=== PATIENT | female | born 1965 | race Caucasian/White ===

== ENCOUNTER 2018-08-06 12:33 | Outpatient (CLI) | payer OTHER ==
--- NOTE | 2018-08-06 14:33 | BD ---
BONE DENSITOMETRY USING DEXA: Date: 08/06/18 HISTORY: Postmenopausal screening for osteoporosis. FINDINGS: Lumbar Spine: BMD (g/cm2) L1 0.889 T-Score: -0.9 Z-Score: -0.1 L2 0.909 T-Score: -1.1 Z-Score: 0.2 L3 0.927 T-Score: -1.4 Z-Score: -0.5 L4 0.946 T-Score: -1.0 Z-Score: 0.0 L1-L4 0.919 T-Score: -1.2 Z-Score: -0.2 Femoral Neck: 0.723 T-Score: -1.1 Z-Score: -0.2 Total Femur: 0.984 T-Score: -0.3 Z-Score: 0.9 The 10 year fracture risk for a major osteoporotic fracture is 5.8% and for a hip fracture is 0.4%. IMPRESSION: Osteopenia. POS: ANA
--- NOTE | 2018-08-06 14:38 | RAD ---
LUMBAR SPINE MULTIPLE VIEWS INCLUDING FLEXION AND EXTENSION: Date: 08/06/18 HISTORY: Low back pain. FINDINGS: There are mild degenerative changes in the lower lumbar spine. No fracture, subluxation, bony destruc tion, spondylosis, or spondylolisthesis seen. No change in alignment is noted on the flexion or exten kena images. IMPRESSION: Mild lumbar spondylosis. POS: ANA
== END 2018-08-06 12:34 | disposition home or self-care (01) ==
LOC: BICMAMMO 12:33
PROVIDERS: ATTEND Obstetrics & Gynecology
DX: Z12.31 Encounter for screening mammogram for malignant neoplasm of breast (principal); Z13.820 Encounter for screening for osteoporosis; M54.5 Low back pain; R92.1 Mammographic calcification found on diagnostic imaging of breast; M85.89 Other specified disorders of bone density and structure, multiple sites; M47.896 Other spondylosis, lumbar region
CPT/HCPCS: 72100; 77063; 77067; 77080

== ENCOUNTER 2019-05-18 19:14 | Inpatient (IN) | payer OTHER ==
[2019-05-18] MEDS ORDERED: Lorazepam 2 MG/ML VIAL ONE (19:28)
[2019-05-18] MEDS ORDERED: Ondansetron PF 4 MG/2 ML Vial ONE (19:28)
[2019-05-18 19:48] LABS: #Basophils 0.1 thou/uL (0.0-0.2); #Eosinphils 0.1 thou/uL (0.0-0.7); #Monocytes 0.8 thou/uL (0.11-0.59); #Neutrophils 2.7 thou/uL (1.40-6.50); %Basophils 1.8 % (0.0-1.0); %Eosinophils 1.1 % (0.0-10.0); %Lymphocytes 44.9 % (21.0-51.0); %Monocytes 11.9 % (0.0-10.0); %Neutrophils 40.2 % (42.0-75.0); Hemoglobin 13.5 g/dL (12.0-16.0); Mean Corpuscular HGB CONC 37.5 g/dL (32.0-36.0); Mean Corpuscular Hemoglobin 32.6 pg (27.0-31.0); Mean Corpuscular Volume 86.9 fL (78.0-98.0); Mean Platelet Volume 6.1 fL (7.4-10.4); Platelet Count 263 thou/uL (130-400); Platelet Morphology Comment Appears Adequate; RBC Distribution Width 10.4 % (11.5-14.5); Red Blood Cell (RBC) Count 4.14 mill/uL (4.20-5.40); White Blood Cell (WBC) Count 6.7 thou/uL (4.8-10.8)
[2019-05-18 19:49] LABS: ALT (SGPT) 17 U/L (8-55); AST (SGOT) 24 U/L (5-34); Albumin 4.7 g/dL (3.5-5.0); Alkaline Phosphatase 52 U/L (40-150); Anion Gap 24 mmol/L (10-20); BUN (Urea Nitrogen) 6 mg/dL (9.8-20.1); Bilirubin, Total 0.8 mg/dL (0.2-1.2); Calc. Creatinine Clearance 0 mL/min (70-130); Calcium 9.8 mg/dL (7.8-10.44); Carbon Dioxide 18 mmol/L (22-29); Chloride 86 mmol/L (98-107); Estimated GFR-MDRD 64; Globulin 2.8 g/dL (2.4-3.5); Glucose 153 mg/dL (70-105); Protein, Total 7.5 g/dL (6.0-8.3); Sodium 125 mmol/L (136-145)
[2019-05-18 19:56] LABS: Potassium 2.7 mmol/L (3.5-5.1)
[2019-05-18] MEDS ORDERED: Potassium Chloride 20 MEQ TAB ONE (20:00)
[2019-05-18] MEDS ORDERED: NS 0.9% w/ 20 MEQ KCL 1,000 ML ONE (20:00)
--- NOTE | 2019-05-18 20:18 | RAD ---
PORTABLE UPRIGHT CHEST ONE VIEW: 05/18/19 at 8:04 p.m. HISTORY: Chest pain, shortness of breath. FINDINGS: The heart size is normal. The lungs are expanded without focal areas of consolidation, pneumothoraces or pleural effusions. IMPRESSION: No acute process. POS: [facility]
[2019-05-18] MEDS ORDERED: NS 0.9% w/ 20 MEQ KCL 1,000 ML IV SCH (23:00)
[2019-05-18 23:21] VITALS: BMI 19.7
[2019-05-19] MEDS ORDERED: Lorazepam 2 MG/ML VIAL SLOW IVP PRN (01:06)
[2019-05-19] MEDS ORDERED: Ondansetron ODT 4 MG TAB PO PRN (01:06)
[2019-05-19] MEDS ORDERED: ALPRAZolam 0.5 MG TAB PO PRN (01:06)
[2019-05-19] MEDS ORDERED: Ondansetron PF 4 MG/2 ML Vial IVP PRN (01:06)
[2019-05-19] MEDS ORDERED: Acetaminophen 500 MG TAB PO PRN (01:06)
[2019-05-19] MEDS: Potassium Chloride 40 MEQ in Sodium Chloride 0.45% 1,000 ML IV SCH ×2 (01:36→11:59)
[2019-05-19 06:07] LABS: ALT (SGPT) 15 U/L (8-55); AST (SGOT) 24 U/L (5-34); Alkaline Phosphatase 43 U/L (40-150); Anion Gap 8 mmol/L (10-20); BUN (Urea Nitrogen) 5 mg/dL (9.8-20.1); Bilirubin, Total 0.5 mg/dL (0.2-1.2); Calc. Creatinine Clearance 69 mL/min (70-130); Carbon Dioxide 25 mmol/L (22-29); Chloride 105 mmol/L (98-107); Estimated GFR-MDRD 81; Globulin 2.1 g/dL (2.4-3.5); Glucose 99 mg/dL (70-105); Potassium 4.8 mmol/L (3.5-5.1); Protein, Total 6.1 g/dL (6.0-8.3); Sodium 133 mmol/L (136-145)
[2019-05-19 06:41] LABS: Hemoglobin 12.5 g/dL (12.0-16.0); Mean Corpuscular HGB CONC 34.8 g/dL (32.0-36.0); Mean Corpuscular Hemoglobin 32.3 pg (27.0-31.0); Mean Corpuscular Volume 92.6 fL (78.0-98.0); Mean Platelet Volume 6.9 fL (7.4-10.4); Platelet Count 172 thou/uL (130-400); RBC Distribution Width 10.8 % (11.5-14.5); Red Blood Cell (RBC) Count 3.86 mill/uL (4.20-5.40)
[2019-05-19 07:35] LABS: Band 1 % (5-11); Eosinophils 2 % (0-10); Lymphocytes 40 % (21-51); MDiff Complete? YES; Monocytes 8 % (0-10); Neutrophil 49 % (42-75); RBC Morphology Normal
[2019-05-19] MEDS ORDERED: Diabetic Tussin 200 MG/10 ML UDCUP PO PRN (07:51)
[2019-05-19] MEDS ORDERED: Sodium Chloride 0.65% Nasal 44 ML BOT EA NARE PRN (07:51)
[2019-05-19] MEDS ORDERED: Artificial Tears 18 DROP/0.9 ML EA EYE PRN (07:51)
[2019-05-19] MEDS ORDERED: Bisacodyl 10 MG SUPP PR PRN (07:51)
[2019-05-19] MEDS ORDERED: Senokot S 8.6-50 MG TAB PO PRN (07:51)
[2019-05-19] MEDS ORDERED: Cepastat Lozenges 1 LOZ PO PRN (07:51)
[2019-05-19] MEDS ORDERED: Zolpidem Tartrate 5 MG TAB PO PRN (07:51)
[2019-05-19] MEDS ORDERED: Loperamide HCl 2 MG CAP PO PRN (07:51)
[2019-05-19] MEDS ORDERED: hydrALAZINE 20 MG/ML VIAL SLOW IVP PRN (07:51)
--- NOTE | 2019-05-19 08:49 | HP ---
PRIMARY CARE PROVIDER: Girish Avila MD. CHIEF COMPLAINT: Muscle cramps, sweating, anxiety. HISTORY OF PRESENT ILLNESS: This is a 53-year-old female who presented to [facility] Emergency Department complaining of sudden onset of feeling anxious, shortness of breath, chest pain, muscle cramping, muscle twitching, and a feeling of impending doom. The patient states she presented to the emergency room and felt like she was going to pass out. The patient apparently sat down in the lobby during triage and was taken to the emergency room for further evaluation. The patient states she was recently changed from Lexapro to Effexor by her primary care provider for her depression. The patient states she has been taking it over the last 4 weeks without noticeable change. However, recently transitioned from 2 tablets of Effexor to an extended-release preparation in the last several days. The patient felt "odd" with worsening anxiety, diaphoresis, and generalized muscle cramping and twitching. The patient denied any other exposure history, documented fever, travel, or exposure. The patient denied family members with similar symptoms. The patient denied any exposure to pesticides. In the emergency room, the patient underwent general evaluation, receiving intravenous fluids as well as potassium supplementation, antiemetics, and lorazepam. The patient's metabolic profile revealed hypokalemia with a level of 2.7 and mild hyponatremia. The patient was transferred to the telemetry unit for further evaluation. PAST MEDICAL HISTORY: 1. Anxiety/depression. 2. Gastroesophageal reflux. 3. Rheumatoid arthritis, currently treated. PAST SURGICAL HISTORY: 1. Status post breast biopsy. 2. Status post colonoscopy. 3. Status post appendectomy. 4. Status post hemorrhoidectomy. CURRENT MEDICATIONS: 1. Xanax 0.5 mg p.o. daily p.r.n. anxiety. 2. Amitriptyline 10 mg p.o. at bedtime. 3. Calcium carbonate 1000 mg p.o. daily. 4. Zyrtec 10 mg p.o. daily. 5. Vitamin B12 at 500 mcg p.o. daily. 6. Plaquenil 200 mg p.o. b.i.d. 7. Venlafaxine extended release 75 mg p.o. at bedtime. ALLERGIES: TO ASPIRIN, IBUPROFEN, AND SHELLFISH. FAMILY HISTORY: No inheritable disease per patient report. SOCIAL HISTORY: The patient resides in [place], [place]. . Social alcohol use. No tobacco or illicit drug use. Functional of all activities of daily living. REVIEW OF SYSTEMS: CONSTITUTIONAL: Negative for weight loss or gain, ability to conduct usual activities. SKIN: Negative for rash, itching. EYES: Negative for double vision, pain. ENT/MOUTH: Negative for nose bleeding, neck stiffness, pain, tenderness. CARDIOVASCULAR: Negative for palpitations, dyspnea on exertion, orthopnea. RESPIRATORY: Negative for shortness of breath, wheezing, cough, hemoptysis, fever or night sweats. GASTROINTESTINAL: Negative for poor appetite, abdominal pain, heartburn, nausea, vomiting, constipation, or diarrhea. GENITOURINARY: Negative for urgency, frequency, dysuria, nocturia. MUSCULOSKELETAL: Negative for pain, swelling. NEUROLOGIC/PSYCHIATRIC: Negative for anxiety, depression. ALLERGY/IMMUNOLOGIC: Negative for skin rash, bleeding tendency. Otherwise, negative except as stated per HPI. PHYSICAL EXAMINATION: VITAL SIGNS: On admission, blood pressure 140/70, pulse 75, respiratory rate 14, temperature 97.6 degrees Fahrenheit, O2 saturation 98% on room air. GENERAL APPEARANCE: This is a 53-year-old female, alert and oriented x3, pleasant, in no acute distress. HEENT: Pupils are equal, round, reactive to light and accommodation. Extraocular muscles are intact. No scleral icterus. No conjunctival injection. No nystagmus noted. Nares patent. OP is clear. Teeth in good repair. NECK: Supple. No cervical adenopathy. No thyromegaly. No carotid bruits. No JVD appreciated. Cervical spine with full active and passive range of motion. No meningeal signs noted. CHEST: Lungs are clear to auscultation bilaterally. CARDIOVASCULAR: S1, S2 without noted murmur, rub, or gallop. ABDOMEN: Rounded, soft, nontender, and nondistended. Bowel sounds are positive in all 4 quadrants. There is no hepatosplenomegaly. No abdominal bruits. No rebound or guarding appreciated. EXTREMITIES: Warm and dry with fair turgor. No clubbing, cyanosis, or asymmetric edema appreciated. Pulses are palpable distally at the dorsalis pedis, posterior tibial, and popliteal arteries bilaterally. Capillary refill less than 2 seconds. NEUROLOGIC: Cranial nerves 2 through 12 are grossly intact. No focal or lateralizing signs appreciated. PERTINENT LABORATORY AND X-RAY FINDINGS: Sodium 125, potassium 2.7, chloride 86, CO2 of 18, anion gap 24, BUN 6, creatinine 0.92, glucose 153, calcium 9.8. LFTs within normal limits. CBC showed a white blood cell count of 6.7, hemoglobin 13.5, hematocrit 36, platelet count 263 with 40% neutrophils. Portable chest x-ray dated 05/18/2019 showed no acute cardiopulmonary process. EKG dated 05/18/2019 by my interpretation shows sinus mechanism with heart rates in the 80s. Normal R-wave progression noted in the precordial leads. Normal axis. No acute ST-T wave changes appreciated. ASSESSMENT AND PLAN: 1. Serotonin syndrome. Suspected given the patient's clinical presentation and recent addition of venlafaxine. We will continue supportive management with intravenous fluids. Lorazepam 1 mg IV q.6 hours p.r.n. anxiety. Hold SSRIs and monitor clinical response. The patient may need additional adjustment to her current SSRI dosing on an ongoing basis after discharge. 2. Hypokalemia. Continue potassium chloride supplementation and repeat potassium level in the a.m. 3. Hyponatremia. Mild. Continue normal saline as outlined previously and repeat sodium level in the a.m. 4. Anxiety/depression. Continue Xanax p.r.n. Hold SSRIs as stated in #1. 5. Prophylaxis. SCDs while in bed. Pepcid 20 mg p.o. b.i.d. 6. Code status is full. Surrogate medical decision maker is the patient's spouse. Job ID: [id number]
[2019-05-19] MEDS ORDERED: Loratadine 10 MG TAB PO SCH (09:00)
[2019-05-19] MEDS ORDERED: Calcium Carbonate 500 MG TAB PO SCH (09:00)
[2019-05-19] MEDS ORDERED: Hydroxychloroquine Sulfate 200 MG TAB PO SCH (09:00)
[2019-05-19] MEDS ORDERED: Famotidine 20 MG TAB PO SCH (09:00)
[2019-05-19] MEDS ORDERED: Non-Formulary Item 1 EACH (Cetirizine Hcl [Zyrtec] 10 MG) PO SCH (09:00)
[2019-05-19] MEDS ORDERED: Cyanocobalamin (Vitamin B-12) 1,000 MCG TAB PO SCH (09:00)
--- NOTE | 2019-05-19 10:15 | PDOC.PN ---
- Subjective Encounter Start Date: 05/19/19 Encounter Start Time: 07:10 -: old records requested/rev Patient seen and examined. No new complaints. No overnight events - Objective Resuscitation Status - Order Detail: 05/19/19 00:55 Resuscitation Status Routine Resuscitation Status: FULL: Full Resuscitation MAR Reviewed: Yes Vital Signs & Weight: Vital Signs (12 hours) Temp Pulse Resp BP Pulse Ox 05/19/19 08:00 97.7 F 14 141/76 H 98 05/19/19 04:00 97.5 F L 67 18 148/70 H 94 L 05/18/19 22:47 97.6 F 75 14 140/70 98 Weight Weight 111 lb 8 oz I&O: 05/18/19 05/19/19 05/20/19 06:59 06:59 06:59 Intake Total 1155 240 Output Total 1000 Balance 155 240 Result Diagrams: 05/19/19 05:11 05/19/19 05:11 EKG Reviewed by me: Yes Phys Exam - Physical Examination Constitutional: NAD HEENT: PERRLA, moist MMs, sclera anicteric Neck: no JVD, supple Respiratory: no wheezing, no rales, no rhonchi Cardiovascular: RRR, no significant murmur, no rub Gastrointestinal: soft, non-tender, no distention, positive bowel sounds Musculoskeletal: no edema, pulses present Neurological: non-focal, normal sensation, moves all 4 limbs Lymphatic: no nodes Psychiatric: normal affect, A&O x 3 Skin: no rash, normal turgor Dx/Plan (1) Hypokalemia Code(s): E87.6 - HYPOKALEMIA Status: Acute (2) Hyponatremia Code(s): E87.1 - HYPO-OSMOLALITY AND HYPONATREMIA Status: Acute (3) Anxiety and depression Code(s): F41.9 - ANXIETY DISORDER, UNSPECIFIED; F32.9 - MAJOR DEPRESSIVE DISORDER, SINGLE EPISODE, UNSPECIFIED Status: Chronic (4) Rheumatoid arthritis Code(s): M06.9 - RHEUMATOID ARTHRITIS, UNSPECIFIED Status: Chronic - Plan cont current plan of care, plan discussed w/ family * medication reviewed as below * symptomatic treatment * possible discharge later on if pt feels better * DC effexor. Review of Systems - Review of Systems ENT: negative: Ear Pain, Ear Discharge, Nose Pain, Nose Discharge, Nose Congestion, Mouth Pain, Mouth Swelling, Throat Pain, Throat Swelling, Other Respiratory: negative: Cough, Dry, Shortness of Breath, Hemoptysis, SOB with Excertion, Pleuritic Pain, Sputum, Wheezing Cardiovascular: negative: chest pain, palpitations, orthopnea, paroxysmal nocturnal dyspnea, edema, light headedness, other Gastrointestinal: negative: Nausea, Vomiting, Abdominal Pain, Diarrhea, Constipation, Melena, Hematochezia, Other Genitourinary: negative: Dysuria, Frequency, Incontinence, Hematuria, Retention , Other Musculoskeletal: negative: Neck Pain, Shoulder Pain, Arm Pain, Back Pain, Hand Pain, Leg Pain, Foot Pain, Other - Medications/Allergies Allergies/Adverse Reactions: Allergies Allergy/AdvReac Type Severity Reaction Status Date / Time aspirin Allergy Verified 05/18/19 22:58 ibuprofen Allergy Verified 05/18/19 22:58 shellfish derived Allergy Verified 05/18/19 22:58 Medications: Current Medications Acetaminophen (Tylenol) 1,000 mg PO Q6H PRN PRN Reason: Mild Pain (1-3) Alprazolam (Xanax) 0.5 mg PO DAILYPRN PRN PRN Reason: Anxiety Artificial Tears (Tears Naturale) 2 drop EA EYE PRN PRN PRN Reason: Dry Eyes Bisacodyl (Dulcolax) 10 mg [place] DAILYPRN PRN PRN Reason: Constipation Calcium Carbonate (Oscal-500) 1,000 mg PO DAILY [facility] Last Admin: 05/19/19 09:15 Dose: 1,000 mg Cyanocobalamin (Vitamin B-12) 500 mcg PO DAILY [facility] Last Admin: 05/19/19 09:14 Dose: 500 mcg Famotidine (Pepcid) 20 mg PO BID [facility] Last Admin: 05/19/19 09:15 Dose: 20 mg Guaifenesin (Robitussin Sf) 200 mg PO Q4H PRN PRN Reason: Cough Hydralazine HCl (Apresoline) 10 mg SLOW IVP Q4H PRN PRN Reason: SBP > 180 and HR < 70 Hydroxychloroquine Sulfate (Plaquenil) 200 mg PO BID [facility] Last Admin: 05/19/19 09:15 Dose: 200 mg Potassium Chloride 40 meq/ (Sodium Chloride) 1,020 mls @ 100 mls/hr IV .[id number] [facility] Last Admin: 05/19/19 01:36 Dose: 1,020 mls Loperamide HCl (Imodium) 2 mg PO PRN PRN PRN Reason: Diarrhea/Loose Stools Loratadine (Claritin) 10 mg PO DAILY [facility] Last Admin: 05/19/19 09:16 Dose: 10 mg Lorazepam (Ativan) 1 mg SLOW IVP Q6H PRN PRN Reason: Anxiety/Agitation Ondansetron HCl (Zofran Odt) 4 mg PO Q6H PRN PRN Reason: Nausea/Vomiting Ondansetron HCl (Zofran) 4 mg IVP Q6H PRN PRN Reason: Nausea/Vomiting Senna/Docusate Sodium (Senokot S) 2 tab PO BID PRN PRN Reason: Constipation Sodium Chloride (Flush - Normal Saline) 10 ml IVF Q12HR [facility] Last Admin: 05/19/19 09:19 Dose: 10 ml Sodium Chloride (Flush - Normal Saline) 10 ml IVF PRN PRN PRN Reason: Saline Flush Sodium Chloride ([place] Nasal [place] 0.65%) 0 ml EA NARE QIDPRN PRN PRN Reason: Nasal Congestion Throat Lozenges (Cepastat Lozenges) 1 henny PO Q2H PRN PRN Reason: Sore Throat Zolpidem Tartrate (Ambien) 5 mg PO HSPRN PRN PRN Reason: Insomnia
--- NOTE | 2019-05-19 11:36 | DIS ---
DATE OF ADMISSION: 05/18/2019 DATE OF DISCHARGE: 05/19/2019 PRIMARY CARE PHYSICIAN: Girish Avila MD. DISCHARGE DISPOSITION: Home. PRIMARY DISCHARGE DIAGNOSES: 1. Hypokalemia. 2. Hyponatremia. SECONDARY DISCHARGE DIAGNOSES: 1. Rheumatoid arthritis. 2. Anxiety and depression. PRIMARY PROCEDURE/OPERATION: None. RADIOLOGICAL INVESTIGATION: Chest x-ray normal. SIGNIFICANT LABORATORY DATA: WBC 3.0, hemoglobin 12.5, and platelet 172. Sodium 133, potassium 4.8, BUN 5, and creatinine 0.75. LFT normal. TSH 1.68. Troponin 0.010. DISCHARGE MEDICATIONS: 1. Xanax 0.5 mg p.o. daily p.r.n. as directed. 2. Amitriptyline 10 mg p.o. at bedtime. 3. Calcium 1000 mg p.o. daily. 4. Cetirizine 10 mg daily. 5. Vitamin B12 of 500 mg p.o. daily. 6. Plaquenil 200 mg p.o. b.i.d. CONTRAINDICATION: None. CODE STATUS: Full code. INPATIENT WAREHOUSE ORDER PICKER: None. ALLERGIES: ASPIRIN, IBUPROFEN, AND SHELLFISH. DISCHARGE PLAN: Posthospital, the patient will follow up with primary care physician in 1 week. The patient will make appointment with Dr. Chavez, psychiatrist next week. HOSPITAL COURSE: A 53-year-old female, who was admitted by Dr. Figueredo. Please see his H and P for further details. The patient has underlying anxiety disorder and she was previously on Lexapro. Her primary care physician changed to Effexor recently. The patient was taking this medication for last 2 to 3 weeks. She also went recently for travel to [place] and she was not eating and drinking. For last one or 2 weeks, she was also experiencing not good. She was having nausea and generalized weakness. Her appetite was also reduced. She started feeling vomiting and she was having tingling, numbness in her body and she was started having muscle cramps and that is why the patient was brought to emergency room. The patient was found with hypokalemia, hyponatremia, and metabolic acidosis. We are suspecting that because of Effexor, the patient might have hyponatremia and hyponatremia got symptomatic and then the patient had vomiting and that made potassium drop and that was causing her paresthesia. At this point, we have advised the patient to discontinue Effexor until she sees her psychiatrist and then her psychiatrist will decide about different alternative medication for anxiety disorder. The patient is feeling much better after overnight treatment in the emergency room and after hospitalization, her potassium has improved. Her metabolic acidosis has improved. Her sodium has also improved. The patient is ambulatory, tolerating p.o. well, and completely asymptomatic and she expressed her wish to go home later on today. I have seen and examined the patient at the bedside today. Plan of care discussed with the patient and her . Please see my progress note from today for further detail. Job ID: [id number]
[2019-05-19 12:36] LABS: Anion Gap 13 mmol/L (10-20); BUN (Urea Nitrogen) 5 mg/dL (9.8-20.1); Calc. Creatinine Clearance 74 mL/min (70-130); Calcium 9.4 mg/dL (7.8-10.44); Carbon Dioxide 24 mmol/L (22-29); Chloride 103 mmol/L (98-107); Estimated GFR-MDRD 88; Glucose 84 mg/dL (70-105); Potassium 4.5 mmol/L (3.5-5.1); Sodium 135 mmol/L (136-145)
[2019-05-19 16:27] VITALS: BP 138/74; TEMP 98.2
== END 2019-05-19 17:43 | disposition home or self-care (01) | DRG 641 ==
LOC: SCSER 19:14 → 2NO 22:20
PROVIDERS: ADMIT Internal Medicine; ATTEND Internal Medicine
DX: E87.1 Hypo-osmolality and hyponatremia (principal); F32.9 Major depressive disorder, single episode, unspecified; F41.9 Anxiety disorder, unspecified; K21.9 Gastro-esophageal reflux disease without esophagitis; M06.9 Rheumatoid arthritis, unspecified; E87.6 Hypokalemia; E87.2 Acidosis; Z79.899 Other long term (current) drug therapy
CPT/HCPCS: 36415; 71045; 80053; 83735; 84443; 84484; 85007; 85025; 85027; 93005; 96361; 96374; 96375; J2060; J2405; J3480

== ENCOUNTER 2019-10-05 10:05 | Outpatient (CLI) | payer OTHER ==
--- NOTE | 2019-10-05 11:05 | MMO ---
Bilateral MAMMO Bilat Screen [facility]. CLINICAL HISTORY: Patient is 54 years old and is seen for screening. The patient has no family history of breast cancer. The patient has no personal history of cancer. The patient has a history of right Excisional Biopsy in 2000 - papilloma. VIEWS: The views performed were: bilateral craniocaudal with tomosynthesis and bilateral mediolateral oblique with tomosynthesis. FILMS COMPARED: The present examination has been compared to prior imaging studies performed at [facility] on 03/14/2015, 06/10/2016, 07/10/2017 and 08/06/2018. This study has been interpreted with the assistance of computer-aided detection. MAMMOGRAM FINDINGS: The breasts are heterogeneously dense, which could obscure a lesion on mammography. There are stable benign appearing calcifications seen in both breasts. There are no suspicious masses, suspicious calcifications, or new areas of architectural distortion. IMPRESSION: THERE IS NO MAMMOGRAPHIC EVIDENCE OF MALIGNANCY. A ROUTINE FOLLOW-UP MAMMOGRAM IN 1 YEAR IS RECOMMENDED. THE RESULTS OF THIS EXAM WERE SENT TO THE PATIENT. ACR BI-RADS Category 2 - Benign finding MAMMOGRAPHY NOTE: 1. A negative mammogram report should not delay a biopsy if a dominant of clinically suspicious mass is present. 2. Approximately 10% to 15% of breast cancers are not detected by mammography. 3. Adenosis and dense breasts may obscure an underlying neoplasm. Reported by: LEVI ESCAMILLA MD Electonically Signed: [id number]
== END 2019-10-05 10:06 | disposition home or self-care (01) ==
LOC: BICMAMMO 10:05
PROVIDERS: ATTEND Obstetrics & Gynecology
DX: Z12.31 Encounter for screening mammogram for malignant neoplasm of breast (principal)
CPT/HCPCS: 77063; 77067

== ENCOUNTER 2020-10-10 13:42 | Outpatient (CLI) | payer OTHER ==
--- NOTE | 2020-10-10 15:34 | BD ---
EXAM: Bone densitometry using DEXA HISTORY: 55 yo female. Screening for postmenopausal osteoporosis FINDINGS: L1--bone mineral density 0.872 g/sq cm; T score -1.1 ; Z score -0.1 L2--bone mineral density 0.881 g/sq cm; T score -1.3 ; Z score -0.3 L3--bone mineral density 0.908 g/sq cm; T score -1.6 ; Z score -0.5 L4--bone mineral density 0.907 g/sq cm; T score -1.4 ; Z score -0.3 Total L1-L4--bone mineral density 0.893 g/sq cm; T score -1.4 ; Z score -0.3 Left femoral neck--bone mineral density0.654; T score -1.8 ; Z score -0.7 Total proximal left femur--bone mineral density 0.865; T score -0.6 ; Z score 0.1 The 10 year fracture risk for a major osteoporotic fracture is 8.1% and for a hip fracture is 0.1%. IMPRESSION: Osteopenia
--- NOTE | 2020-10-10 16:39 | MMO ---
Bilateral MAMMO Bilat Screen [facility]. CLINICAL HISTORY: Patient is 55 years old and is seen for screening. The patient has no family history of breast cancer. The patient has no personal history of cancer. The patient has a history of right Excisional Biopsy in 2000 - papilloma. VIEWS: The views performed were: bilateral craniocaudal with tomosynthesis and bilateral mediolateral oblique with tomosynthesis. FILMS COMPARED: The present examination has been compared to prior imaging studies performed at [facility] on 06/10/2016, 07/10/2017, 08/06/2018 and 10/05/2019. This study has been interpreted with the assistance of computer-aided detection. MAMMOGRAM FINDINGS: The breasts are heterogeneously dense, which could obscure a lesion on mammography. Benign calcifications are noted bilaterally. There are no suspicious masses, suspicious calcifications, or new areas of architectural distortion. IMPRESSION: THERE IS NO MAMMOGRAPHIC EVIDENCE OF MALIGNANCY. A ROUTINE FOLLOW-UP MAMMOGRAM IN 1 YEAR IS RECOMMENDED. THE RESULTS OF THIS EXAM WERE SENT TO THE PATIENT. ACR BI-RADS Category 2 - Benign finding MAMMOGRAPHY NOTE: 1. A negative mammogram report should not delay a biopsy if a dominant of clinically suspicious mass is present. 2. Approximately 10% to 15% of breast cancers are not detected by mammography. 3. Adenosis and dense breasts may obscure an underlying neoplasm. Reported by: DUARTE TAY MD Electonically Signed: [id number]
== END 2020-10-10 13:43 | disposition home or self-care (01) ==
LOC: BICMAMMO 13:42
PROVIDERS: ATTEND Obstetrics & Gynecology
DX: Z12.31 Encounter for screening mammogram for malignant neoplasm of breast (principal); Z13.820 Encounter for screening for osteoporosis; M85.89 Other specified disorders of bone density and structure, multiple sites
CPT/HCPCS: 77063; 77067; 77080

== ENCOUNTER 2021-10-16 08:37 | Outpatient (CLI) | payer OTHER | END 2021-10-16 08:38 | disposition home or self-care (01) | LOC: BICMAMMO 08:37 | PROVIDERS: ATTEND Obstetrics & Gynecology | DX: Z12.31 Encounter for screening mammogram for malignant neoplasm of breast (principal); Z86.018 Personal history of other benign neoplasm | CPT/HCPCS: 77063; 77067 ==